=== PATIENT | female | born 1965 | race Caucasian/White ===

== ENCOUNTER 2019-12-18 15:43 | Emergency (ER) | payer BC ==
[~2019-12-18] VITALS: Ht 172.7 cm; Wt 81.6 kg
[2019-12-18 16:04] VITALS: BP 115/75
--- NOTE | 2019-12-18 16:19 | NUR ---
AT BEDSIDE FOR EVAL.
--- NOTE | 2019-12-18 16:25 | NUR ---
R SHOULDER SLING APPLIED.
[2019-12-18] MEDS ORDERED: HYDROCODONE/APAP 5/325MG TABLET ONE (16:27)
--- NOTE | 2019-12-18 16:29 | NUR ---
VIOLIN MAKER HAND AT BEDSIDE FOR XRAY.
[2019-12-18] MEDS ORDERED: HYDROCODONE/APAP 5/325MG TABLET PO ONE (16:30)
--- NOTE | 2019-12-18 17:43 | NUR ---
Patient discharged to home in stable condition. Written and verbal after care instructions given. Patient verbalizes understanding of instruction.
== END 2019-12-18 17:45 | disposition home or self-care (01) ==
LOC: ER 15:47
DX: S63.591A Other specified sprain of right wrist, initial encounter (principal); S53.491A Other sprain of right elbow, initial encounter; S43.491A Other sprain of right shoulder joint, initial encounter; Z90.49 Acquired absence of other specified parts of digestive tract; W01.0XXA Fall on same level from slipping, tripping and stumbling without subsequent striking against object, initial encounter; Y93.89 Activity, other specified; Y92.59 Other trade areas as the place of occurrence of the external cause; Y99.8 Other external cause status
CPT/HCPCS: 73030-TC; 73080-TC; 73110